=== PATIENT | female | born 1960 | race Caucasian/White ===

== ENCOUNTER → 2017-05-04 17:24 | Outpatient (CLI) | payer OTHER, SELFPAY ==
--- NOTE | 2017-05-04 | FLU_PTH ---
PATIENT: LUDY TEJADA LOC: [facility] U#:[id number] AGE/SX: 64/F ROOM: RE05/04/[address]: MIKE Burdick : 1960 BED: DIS: SPEC #: [id number] RECD: 05/04/17 16:00 STATUS: MAX KUSUM #: [id number] PEDRO PABLO: 05/04/17 00:[address]: Maine Ramirez NP DEPT: CYTOLOGY RECD BY: Phoebe Coyle ENTERED: 05/05/17 09:26 SP TYPE: Fluid OTHR DR: Dr. Nehemiah Helm, Tissues: Urine Procedures: Pap Stain (control) Special Stain Group II Surgery Specimen Level IV Cytospin Fluid HEADER OPERATION: Note noted PRE-OP DIAGNOSIS: Hematuria TISSUE SUBMITTED: Urine for cytology DIAGNOSIS CYTOLOGY Urine for cytology (cytospin): Negative for malignant cells. SJ:zhao 3/1/18 COMMENT Clinical correlation and appropriate follow up are necessary. CYTOLOGY STUDY Slides are reviewed. The specimen consists of benign squamous cells, benign urothelial cells, inflammatory cells, red blood cells and organisms consistent with bacteria. CYTOLOGY GROSS Received is 50 ml of clear yellow fluid labeled with the patient's name and and designated per the requisition as urine. Submitted for cytology preparation. / Francisco 05/05/17 TC:5 CPT: 97749
[2017-05-04 17:28] LABS: Cytology, Body Fluid / CSF SEE PATHOLOGY REPORT
== END ==
PROVIDERS: Family Provider Family Medicine; PCP Family Medicine; Visit Provider Nurse Practitioner Adult Health
DX: R31.9 Hematuria, unspecified (principal)
CPT/HCPCS: 88108; 88305; 88313

== ENCOUNTER → 2018-08-18 16:15 | Outpatient (CLI) | payer OTHER, SELFPAY ==
--- NOTE | 2018-08-18 | IMM_PTH ---
PATIENT: LUDY TEJADA LOC: [facility] U#:[id number] AGE/SX: 64/F ROOM: RE08/18/[address]: Dr. Rui Robledo MD : 1960 BED: DIS: SPEC #: [id number] RECD: 08/22/18 10:29 STATUS: MAX REQ #: [id number] PEDRO PABLO: 08/18/18 00:[address]: Rui Robledo DEPT: IMMUNOHISTOCHEMISTRY RECD BY: Mary Dyson ENTERED: 08/22/18 10:30 SP TYPE: IMMUNO OTHR DR: Dr. Nehemiah Helm DO Tissues: Vagina, NOS Procedures: p16 (initial) KI-67 (add) PHYSICIAN & INSTITUTION [place] [id number] SPECIMEN INFORMATION: Tissue Source: Vaginal cuff Clinical Info: HGSIL Specimen Number: [id number] CPT code: 87345, 95558 METHODOLOGY: Deparaffinized sections of prefer/formalin-fixed tissue or PAP/DQ stained slides are incubated with monoclonal/polyclonal antibodies/oligonucleotide probes. Localization is made via biotin free immunoperoxidase method. Appropriate controls are performed and reacted as expected. Results on target cell population are indicated in the following table: RESULTS: ANTIBODY / CLONE RESULT P16 (E6H4) positive, focal block-like Ki-67 (30-9) positive, moderate These tests were developed and their performance characteristics determined by [facility]. They may not have been cleared or approved by the U.S. Food and Drug Administration. The FDA has determined that such clearance or approval is not necessary. 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 AM:zhao 08/23/18
--- NOTE | 2018-08-18 11:15 | VAGMU_PTH ---
PATIENT: LUDY TEJADA LOC: [facility] U#:[id number] AGE/SX: 64/F ROOM: RE08/18/[address]: Dr. Rui Robledo MD : 1960 BED: DIS: SPEC #: [id number] RECD: 08/18/18 17:16 STATUS: MAX REYajaira #: [id number] PEDRO PABLO: 08/18/18 11:[address]: Rui Robledo DEPT: SURGICAL PATHOLOGY RECD BY: Mary Dyson ENTERED: 08/19/18 09:47 SP TYPE: VAG MUCOSA OTHR DR: Dr. Nehemiah Helm DO Tissues: Vagina, NOS Procedures: Surgery Specimen Level IV HEADER OPERATION: Colposcopy PRE-OP DIAGNOSIS: HGSIL TISSUE SUBMITTED: Vaginal cuff MICROSCOPIC DIAGNOSIS Vaginal cuff, biopsy: Severe squamous dysplasia, VAIN II-III (HGSIL). AM:zhao 08/22/18 COMMENT Results from immunohistochemistry ([id number]) for surrogate HPV marker (p16) will be reported separately. Case has been reviewed in consultation with Dr. Grayson who concurs with the above diagnosis. IDC:SJ MICROSCOPIC DESCRIPTION Slides are reviewed. GROSS DESCRIPTION Received in fixative is one container labeled with the patient's name and designated vaginal cuff. The specimen consists of multiple irregular fragments of light hubbard soft tissue that in aggregate measure 1 x 0.5 x 0.1 cm. The specimen is totally submitted in one cassette. / GURMEET:zhao 08/19/18 TC:0 CPT: 50093
== END ==
PROVIDERS: Family Provider Family Medicine; PCP Family Medicine; Referring Provider Obstetrics & Gynecology; Visit Provider Obstetrics & Gynecology
DX: N87.0 Mild cervical dysplasia (principal)
CPT/HCPCS: 88304; 88305; 88341; 88342

== ENCOUNTER → 2021-07-17 | Outpatient (CLI) | payer OTHER, SELFPAY ==
--- NOTE | 2021-07-17 15:25 | BI_ITS ---
MAMMOGRAPHY - BILATERAL SCREENING REASON FOR EXAM: Female, 61 years old. Routine annual screening examination. PERTINENT HISTORY: Non-contributory. TECHNIQUE: Digital bilateral breast daniela (3D mammographic acquisition) in the CC and MLO projections. 2-D mediolateral oblique (MLO) and craniocaudad (CC) views of both breasts were obtained. CAD: Full Field Digital Mammography with Computer Added Detection was performed. COMPARISON: Comparison is made with prior study dated 07/31/2016. FINDINGS: Breast Composition: There are scattered areas of fibroglandular density. There are no dominant masses or suspicious calcifications. A tissue clip marker is once again seen in the upper outer aspect No other significant abnormalities are identified. There has been no significant change since the prior study. BI/SCRN MAMM (CAD)W/DANIELA BILAT IMPRESSION: Stable bilateral screening mammogram. Yearly follow-up mammogram recommended. (A) ASSESSMENT CATEGORY: BIRADS Category 2: Benign. A letter regarding these results will be sent to the patient by the facility within 30 days. Approximately 10% of breast cancers are not detected by mammography. A normal mammogram should not delay biopsy of a clinically suspicious abnormality. [id number] Electronically Signed: Chuy Gloria MD at 8:03 EDT ,
== END | disposition home or self-care (01) ==
LOC: OPBI 15:21
PROVIDERS: PCP Family Medicine; Visit Provider Family Medicine
DX: Z12.31 Encounter for screening mammogram for malignant neoplasm of breast (principal)
CPT/HCPCS: 77063; 77067

== ENCOUNTER 2021-09-04 13:53 | Emergency (ER) | payer OTHER, SELFPAY ==
[2021-09-04 13:54] VITALS: BP 147/100; PULSE 63; RESP 18; TEMP 36.4; O2SAT 98; BMI 24.0
--- NOTE | 2021-09-04 14:10 | EDS_ITS ---
HPI History of Present Illness Chief Complaint: Dizziness Detail of Chief Complaint: Acute vertigo Informant: patient Onset/Context/Timing Onset: Hours Context: Sudden Onset Timing: Intermittent Onset: Spinning like on an amusement park ride Current Severity: Resolves with closing eyes and remaining still Maximum Severity: Severe Worsened by: Possibly movement Relieved by: Closing eyes Associated Symptoms Associated Symptoms: Positive for Nausea and Vomiting; Negative for Headache or Chest Pain Narrative Narrative: Patient is a 61-year-old woman who presents with abrupt onset of spinning with nausea and vomiting. She states she hua from a sitting position began to walk and everything began to spin. She had nausea and vomiting. She denied double vision, blurred vision loss of vision. She denies headache. She denies ringing or ears or decreased hearing. She has trouble speech or swallowing. She denies cardiac respiratory symptoms. She denies motor weakness. She denies history of TIA or CVA. She does have history of hypertension. She is a smoker 1/2 pack/day. Prior similar symptoms: No Recent Illness/Hospitalization: [facility] Medical History High blood pressure Home Medications enalapril maleate 20 mg tablet (Vasotec) 40 mg PO DAILY 01/10/16 [History Last Taken Unknown] benazepril 20 mg tablet tab 09/04/21 [History Last Taken Unknown] Allergy/AdvReac Type Severity Reaction Status Date / Time No Known Allergies Allergy Verified 09/04/21 13:58 Social History (Updated 09/04/21 @ 14:[address] Tanmay Capone MD) household members: none Smoking Status: Current every day smoker tobacco type: cigarettes substance use type: does not use ROS ROS ED Constitutional Constitutional ED: Denies chills, fever(s), subjective or sweats Eyes Eyes: Denies blurry vision, change in vision or diplopia ENT ENT ED: Denies ear pain, rhinorrhea or sore throat Cardiovascular Cardiovascular: Denies chest pain, palpitations or racing heartbeat Respiratory/Chest Respiratory/Chest: Denies cough, dyspnea or dyspnea on exertion Gastrointestinal Gastrointestinal: Denies abdominal pain, constipation, melena, nausea or vomiting Genitourinary Genitourinary ED: Denies dysuria, hematuria or urinary frequency Musculoskeletal Musculoskeletal: Denies arthralgias, back pain, myalgias or neck pain Integumentary Denies abscess, Abrasions or rash Neurologic Neurologic: Reports other Details: Vertigo ; Denies headache(s), paresthesias or weakness Psychiatric Psychiatric: Denies anxiety or depression Hematologic/Lymphatic Hematologic/Lymphatic: Denies easy bleeding, easy bruising or lymphadenopathy EXAM Physical Exam Const Vital Signs: 09/04/21 13:54 Temperature 97.6 F L Temperature Source Oral Pulse Rate 63 Respiratory Rate 18 Blood Pressure 147/100 H Blood Pressure Mean 115 Pulse Ox 98 Oxygen Delivery Method Room Air Positive well nourished and well developed; Negative for obese, cachectic, contractures or unkempt Constitutional Narrative: Patient is actively vomiting as I entered the room. General Appearance ED: well developed; Negative for unkempt, cachectic or contractures Nutritional Appearance: Negative for cachectic or obese HEENT Reports TM's clear and moist mucous membranes atraumatic Nose: other Other Details: Nares patent. Tympanic Membrane ED: Yes TM's clear Eyes PERRL and EOMs intact bilaterally Eyes Narrative: There is nystagmus with lateral gaze only. There is no central nystagmus. There is no APD. Funduscopic exam is normal i.e. normal cup-to-disc ratio. No papilledema. General Eye ED: Negative for pale conjunctiva or scleral icterus Neck no lymphadenopathy, supple and no JVD Resp normal respiratory effort and clear to auscultation bilaterally Cardio no murmurs Rate: regular rate Rhythm: regular rhythm Heart Sounds: S1 normal and S2 normal GI normal to inspection, nondistended, normoactive bowel sounds, soft to palpation, non-tender and non-distended Back/Spine no CVA tenderness Cervical Spine: Negative for cervical spine tenderness Thoracic Spine / Upper Back: Negative for thoracic spinal tenderness Lumbar Spine / Lower Back: Negative for lumbar spinal tenderness Extremity normal to inspection Extremity Narrative: There is no dysmetria. The eye askew test was negative. The hint test was negative. Patient is presently asymptomatic and Serjio-Hallpike maneuver was negative. General Extremety ED: Negative for deformity, edema or tenderness General Extremity: Negative for deformity or edema Neuro oriented x3, CN's II-XII intact bilaterally and no sensory deficits noted Taylor Coma Scale: document GCS findings Sensorium / Orientation: alert Gait (Neuro): normal gait Motor Exam: strength 5/5 throughout Psych mental status grossly normal Appearance: Negative for unkempt Skin no wounds General Skin Exam: Negative for jaundice Lesions: no lesions Rashes: no rashes STROKE Vital Signs/Narrative: Vital Signs Temp Pulse Resp BP Pulse Ox O2 Del Method 09/04/21 13:54 97.6 F L 63 18 147/100 H 98 Room Air Inital Vital Signs reviewed: Yes NIHSS Initial: 1a Level of Consciousness: 0 1b LOC Questions (Score 2 if aphasic/stupor): 0 1c LOC Commands (Only score 1st attempt): 0 2 Best Gaze (If aphasic, use reflexive mvmts.): 0 3 Visual: 0 4 Facial Palsy: 0 5 Motor Arm Right (UN = amputation/fusion): 0 5 Motor Arm Left: 0 6 Motor Leg Right: 0 6 Motor Leg Left: 0 7 Limb ataxia (Only + if out of proportion): 0 8 Sensory (Aphasia/stupor=0 or 1, coma=2): 0 9 Best Language: 0 10 Dysarthria (mute, coma=2, intubated=UN): 0 11 Extinction and Inattention (only scored if +): 0 Total Score: 0 MDM MDM MDM Narrative Medical decision making narrative: Patient history is consistent with paroxysmal benign positional vertigo. Patient was treated with Zofran and ODT fully milligram tablet for her persistent nausea. Will reassess in 30 minutes. Treatment and Re-Evaluation Narrative: Patient was reassessed at 1432. Her queasiness resolved with closing her eyes. She is fuzzy not spinning. She states she can move her head about without having vertigo. Patient was ambulated. Patient was able ambulate. Discharge Plan Triage Chief Complaint: Dizziness ED Provider: Tanmay Capone Dx/Rx/DC Orders Clinical Impression: Benign paroxysmal positional vertigo Instructions: ED BPV Vertigo Prescriptions: No Action enalapril maleate [Vasotec] 20 MG tablet 40 mg PO DAILY benazepril 20 mg tablet Label Comments: TAKE 1 TABLET BY MOUTH EVERY DAY Primary Care Provider: Nehemiah Helm Referrals: Nehemiah Helm DO [Primary Care Provider] - As Needed Disposition Disposition: Home, Self Care
[2021-09-04] MEDS: Ondansetron ODT 4 MG Tablet PO (14:16)
== END 2021-09-04 14:59 | disposition home or self-care (01) ==
PROVIDERS: Emergency Provider Emergency Medicine; PCP Family Medicine; Visit Provider Emergency Medicine
DX: H81.10 Benign paroxysmal vertigo, unspecified ear (principal); I10 Essential (primary) hypertension; F17.210 Nicotine dependence, cigarettes, uncomplicated; Z79.899 Other long term (current) drug therapy
CPT/HCPCS: 99285